=== PATIENT | female | born 2000 | race Caucasian/White ===

== ENCOUNTER 2024-08-29 15:15 | Outpatient (AMB) | payer MEDICAID, SELFPAY ==
[2024-08-29 15:27] VITALS: BP 99/64; PULSE 66; RESP 18; TEMP 36.2; O2SAT 97; BMI 23.1
--- NOTE | 2024-08-29 15:27 | OBCLNT_ITS ---
Vital Signs 08/29/24 15:27 Height 1.52 m Height Method Stated Weight 53.751 kg Weight Measurement Method Standing Scale BMI 23.1 BP 99/64 Blood Pressure Source Automatic Cuff Blood Pressure Location Left Upper Arm Position Sitting Respiration 18 Pulse 66 Pulse Source Monitor Temp 97.2 F Temp Source Oral Pulse Oximetry (%) 97 Oxygen Delivery Method Room Air Allergies/Home Meds Allergies & Medications Allergies No Known Allergies Allergy (Verified 08/29/24 15:29) Medication Reconciliation vitamin-ferrous fumarate 28 mg iron-folic acid 800 mcg tablet ( Vitamins with Minerals) 1 tab PO QDAY #60 tabs 08/29/24 [Rx] Intake Visit Data Collection New Patient or Established: Established Patient (seen at [facility] within 3 years) Reason for Visit:: OBI Seen by Clinical Staff ONLY (RN/MA): No Housing Liaison Required: No Do You Feel Safe at Home: Yes Authorities Contacted: N/A PCP or OBGYN visit in last 3 months: Yes Hx Now: Yes Are you currently on any form of Control: No Last menstrual period: 06/03/24 Pain Present Currently: No Pain Scale Used: Garcia-Alexandre/Numerical Pain scale:: 0 Smoking Status Smoking Status: Never smoker Questionnaires Covid-19 Vaccine Questionnaire Has patient been vacinated for Covid-19 Have you been vacinated for Covid-19: Yes PHQ-9 PHQ-2 Over the last 2 weeks, how often have you been bothered by any of the following problems? 1. Little interest or pleasure in doing things: not at all 2. Feeling down, depressed, or hopeless: not at all Total score: 0 PHQ-9 3. Trouble falling or staying asleep, or sleeping too much: Not at all 4. Feeling tired or having little energy: Not at all 5. Poor appetite or overeating: Not at all 6. Feeling bad about yourself - or that you are a failure or have let yourself or your family down: Not at all 7. Trouble concentrating on things, such as reading the newspaper or watching television: Not at all 8. Moving or speaking so slowly that other people could have noticed? - Or the opposite - being so fidgety or restless that you have been moving around a lot more than usual: not at all 9. Thoughts that you would be better off or of hurting yourself in some way: Not at all Total score: 0 If you checked off any problems, how difficult have these problems made it for you to do your work, take care of things at home, or get along with other people?: not difficult at all Source: Developed by Drs. Silas Aranda, Bria Clayton, Luis Jones and colleagues, with an educational logan from [employer]. Depression screen completed yes Social History Living Situation History Marital Status: Single Lives With: Family Housing: House Tobacco History Smoking Status: Never smoker Second Hand Smoke Exposure: No Alcohol History Alcohol Intake: Never Domestic Abuse History Do You Feel Safe at Home: Yes History of Present Illness HPI Narrative 24-year-old 4 para 3 for OBI. Patient [facility]. Her last period June 03, 2024. This gives EDC 03/11/2025. So patient is 12 weeks 2 to date. And she has not had any labs done. Patient had 3 pregnancies and all of them were uncomplicated. Biggest baby 8 pounds 6. Denies any existing chronic medical illnesses. She has no allergies. Denies any surgeries and no hospitalizations other than her children. Denies social pet habits. And patient does not have any first trimester discomforts at this time. Denies leaking or bleeding OB Initial Visit OB Flowsheet OB Flowsheet Initial Weight: Not Recorded Date -?-?-?-?-?-?-?-?-?-?-?-?- EGA Weight BP Alb Glu CTX Pres Fundal ht FHR Mov Dilation Station Effacement Hx Notes Visit Note 08/29/24 -?-?-?-?-?-?-?-?-?-?-?-?- 12w 3d 53.751 kg 99/64 absent unknown 12 136 absent OBI today. Denies leaking or bleeding. Denies any nausea and vomiting. Patient lives with her mother so she has help at home. Father the baby is not involved. Last. June 03, 2024. This gives due date 03/11/2025. Patient has poor dates OB panel with NIPT and carrier screen today. Is scheduled patient for ultrasound at [facility] for MFM. Discussed SAB precautions. Increase fluids and rest. Continue vitamins. Return in 4 weeks OB check Menstrual History Menstrual reliability: definite Flow: normal Menstrual regularity: regular Monthly: Yes Age at menarche: 12 On control pills at conception: No OB History : 4 Para: 3 Hx # Pregnancies: 0 Hx Total # of Abortions (Spontaneous & Elective): 0 # of Living Children: 3 Delivery History 1st : date: 07/12/17 sex: male Delivery type: vaginal weight (lbs): 3175.147 g History of depression before or after : No 2nd : date: 12/28/19 sex: female Delivery type: vaginal weight (lbs): 3175.147 g History of depression before or after : No 3rd : date: 12/01/22 sex: female Delivery type: vaginal weight (lbs): 3628.739 g History of depression before or after : No Infection History & Risk Evaluation History of STDs: none HIV risk evaluation: low risk Hepatitis B risk evaluation: low risk Patient or partner has history of Genital Herpes: No Varicella/chicken pox status: immunized Genetic Screening & History Genetic Screening/Teratology Counseling - Includes patient, baby's father, or anyone in either family with: 1. Patient's age 35 years or older as of estimated date of delivery: No 2. Thalassemia (Divehi, Finnish, Mediterranean, or Background); MCV less than 80: No 3. Neural Tube Defect (Meningomyelocele, Spina Bifida, or Anencephaly): No 4. Congenital Heart Defect: No 5. Down Syndrome: No 6. Brice-Sachs (Ashkenazi Synagogue, Cajun, Greek Mckean): No 7. Wali Disease (Ashkenazi Synagogue): No 8. Familial Dysautonomia (Ashkenazi Synagogue): No 9. Sickle Cell Disease or Trait (): No 10. Hemophilia or other blood disorders: No 11. Muscular Dystrophy: No 12. Cystic Fibrosis: No 13. [place]'s Chorea: No 14. Mental Retardation/Autism: No 15. Other inherited genetic or chromosomal disorder: No 16. Maternal Metabolic Disorder (EG,TYPE 1 Diabetes, PKU): No 17. Patient or baby's father had a child with defects not listed above: No 18. Recurrent loss or a stillbirth: No 19. Medications (including supplements, vitamins, herbs or otc drugs)/illicit/recreational drugs/alcohol since last menstrual period: No 20. Any other: No Infection History 1. Live with someone with TB or exposed to TB: No 2. Rash or viral illness since last menstrual period: No 3. Hepatitis B,C: No Other (see comments) Source: [employer] Review of Systems Review of Systems Systems Reviewed: All systems reviewed, normal except as documented Exam General Limitations: no limitations General Appearance: alert, in no apparent distress, comfortable, cooperative, healthy appearing, well developed and well groomed Head Head exam: atraumatic, normocephalic and normal inspection Resp Respiratory exam: Present normal lung sounds bilaterally Card Cardiovascular exam: Present regular rate, normal rhythm and normal heart sounds Abdominal Abdominal exam: Present soft and normal bowel sounds Psych Psychiatric exam: Present normal affect and normal mood Office Procedures OB Clinic LOC & Office Proc's Nursing/Assessment Patient Status: Established Patient OB Clinic Nursing Assessment: Medication Reconciliation, Update PMH in EMR and Vital Signs OB Clinic Coordination of Care: Education Complex Pt/Fam, Consent,records obtained, informed consent, Lab and Imaging orders and Staff clarify orders Special Needs: Heart tones Established Patient Charge Established Patient Point Assignment: 110 Established Patient Point Charge: EP Level 3 (80-115) Assessment & Plan Diagnosis / Problem List (1) Supervision of normal intrauterine in multigravida in second trimester: Status: Acute (2) High risk for intrapartum complications in second trimester: Status: Acute Plan discuss sab precaution, schedule anatomy scan with MFM, OB panel, NIPT and carrier screen, continue PNV/ordered, rtc 3 week Additional Plan Follow Up: 4 Weeks (obc)
== END 2024-08-29 15:58 | disposition home or self-care (01) ==
LOC: HODSOBC 15:15
PROVIDERS: PCP Pediatrics; Referring Provider Pediatrics; Supervising Provider Advanced Practice Midwife; Visit Provider Advanced Practice Midwife
DX: O09.91 Supervision of high risk pregnancy, unspecified, first trimester (principal); Z3A.12 12 weeks gestation of pregnancy
CPT/HCPCS: 99213; G0463

== ENCOUNTER 2024-10-03 10:16 | Outpatient (AMB) | payer MEDICAID, SELFPAY ==
[2024-10-03 10:27] VITALS: BP 95/58; PULSE 69; RESP 17; TEMP 36.5; O2SAT 98; BMI 23.3
--- NOTE | 2024-10-03 10:27 | OBCLNT_ITS ---
Vital Signs 10/03/24 10:27 Height 1.52 m Height Method Measured Weight 54.034 kg Weight Measurement Method Standing Scale BMI 23.3 BP 95/58 L Blood Pressure Source Automatic Cuff Blood Pressure Location Right Upper Arm Position Sitting Respiration 17 Pulse 69 Pulse Source Monitor Temp 97.7 F Temp Source Temporal Artery Scan Pulse Oximetry (%) 98 Oxygen Delivery Method Room Air Allergies/Home Meds Allergies & Medications Allergies No Known Allergies Allergy (Verified 10/03/24 10:28) Medication Reconciliation vitamin-ferrous fumarate 28 mg iron-folic acid 800 mcg tablet ( Vitamins with Minerals) 1 tab PO QDAY #60 tabs 08/29/24 [Rx Confirmed 10/03/24] Intake Visit Data Collection New Patient or Established: Established Patient (seen at [facility] within 3 years) Reason for Visit:: OBC Consent obtained for Telemed Visit: No Seen by Clinical Staff ONLY (RN/MA): No Executive Chef Required: No Do You Feel Safe at Home: Yes Authorities Contacted: N/A PCP or OBGYN visit in last 3 months: Yes Date of Last PCP or OBGYN visit: 08/29/24 Hx Now: Yes Are you currently on any form of Control: No Pain Present Currently: No Pain Scale Used: Garica-Alexandre/Numerical Pain scale:: 0 Smoking Status Smoking Status: Never smoker Questionnaires Covid-19 Vaccine Questionnaire Has patient been vacinated for Covid-19 Have you been vacinated for Covid-19: No PHQ-9 PHQ-2 Over the last 2 weeks, how often have you been bothered by any of the following problems? 1. Little interest or pleasure in doing things: not at all PHQ-9 8. Moving or speaking so slowly that other people could have noticed? - Or the opposite - being so fidgety or restless that you have been moving around a lot more than usual: not at all Source: Developed by Drs. Silas Aranda, Bria Clayton, Luis Jones and colleagues, with an educational logan from [employer]. Social History Living Situation History Lives With: Family Housing: House Tobacco History Smoking Status: Never smoker Second Hand Smoke Exposure: No Alcohol History Alcohol Intake: Never Domestic Abuse History Do You Feel Safe at Home: Yes Care OB Visit Log OB Flowsheet Initial Weight: Not Recorded Date -?-?-?-?-?-?-?-?-?-?-?-?- EGA Weight BP Alb Glu CTX Pres Fundal ht FHR Mov Dilation Station Effacement Hx Notes Visit Note 08/29/24 -?-?-?-?-?-?-?-?-?-?-?-?- 12w 3d 53.751 kg 99/64 absent unknown 12 136 absent OBI today. Denies leaking or bleeding. Denies any nausea and vomiting. Patient lives with her mother so she has help at home. Father the baby is not involved. Last. June 03, 2024. This gives due date 03/11/2025. Patient has poor dates OB panel with NIPT and carrier screen today. Is scheduled patient for ultrasound at [facility] for MFM. Discussed SAB precautions. Increase fluids and rest. Continue vitamins. Return in 4 weeks OB check 10/03/24 -?-?-?-?-?-?-?-?-?-?-?-?- 17w 3d 54.034 kg 95/58 absent unknown 17 135 absent c/o light FM, no sab complaints, doing well AFP today , patient will call [facility] for sono. sab precaution DINORAH Calculator Estimated Delivery Date Method Current WG Current Estimate 03/10/25 LMP (Uncertain) 17w 3d Notes Visit Date: 10/03/24 Last Updated by: Shital North CNM O+,abs-, rpr;;nr, rub imm, hbsag-, hiv-, GC/CT-, NIPT-, HC-, Visit Date: 08/29/24 Last Updated by: Shital North CNM 24 yo . LMP 06/03/24. EDC 03/11/25 Office Procedures OB Clinic LOC & Office Proc's Nursing/Assessment Patient Status: Established Patient OB Clinic Nursing Assessment: Medication Reconciliation, Update PMH in EMR and Vital Signs OB Clinic Coordination of Care: Complex Care and Chronic Disease 1-5, Consent,records obtained, informed consent, Education Simp Pt/Fam and Staff clarify orders Special Needs: Heart tones Established Patient Charge Established Patient Point Assignment: 115 Established Patient Point Charge: EP Level 3 (80-115) Assessment & Plan Diagnosis / Problem List (1) High risk for intrapartum complications in second trimester: Status: Acute Plan AFP today, mfm appointment pending, discuss sab precaution, rtc 4 week OBC Additional Plan Follow Up: 4 Weeks (OBC)
== END 2024-10-03 11:12 | disposition home or self-care (01) ==
LOC: HODSOBC 10:16
PROVIDERS: Supervising Provider Advanced Practice Midwife; Visit Provider Advanced Practice Midwife
DX: O09.92 Supervision of high risk pregnancy, unspecified, second trimester (principal); Z3A.17 17 weeks gestation of pregnancy
CPT/HCPCS: 99213; G0463

== ENCOUNTER 2024-10-31 10:37 | Outpatient (AMB) | payer MEDICAID, SELFPAY ==
--- NOTE | 2024-10-31 11:00 | AMB.OBVISIT ---
Vital Signs 10/31/24 11:03 Height 1.52 m Height Method Stated Weight 54.658 kg Weight Measurement Method Standing Scale BMI 23.6 BP 96/59 L Blood Pressure Source Automatic Cuff Blood Pressure Location Left Upper Arm Position Sitting Respiration 16 Pulse 78 Pulse Source Monitor Temp 98 F Temp Source Oral Pulse Oximetry (%) 98 Oxygen Delivery Method Room Air Allergies/Home Meds Allergies & Medications Allergies No Known Allergies Allergy (Verified 10/31/24 11:04) Medication Reconciliation vitamin-ferrous fumarate 28 mg iron-folic acid 800 mcg tablet ( Vitamins with Minerals) 1 tab PO QDAY #60 tabs 08/29/24 [Rx Confirmed 10/31/24] Intake Visit Data Collection New Patient or Established: Established Patient (seen at 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 1. Little interest or pleasure in doing things: not at all 2. Feeling down, depressed, or hopeless: not at all Total score: 0 PHQ-9 3. Trouble falling or staying asleep, or sleeping too much: Not at all 4. Feeling tired or having little energy: Not at all 5. Poor appetite or overeating: Not at all 6. Feeling bad about yourself - or that you are a failure or have let yourself or your family down: Not at all 7. Trouble concentrating on things, such as reading the newspaper or watching television: Not at all 8. Moving or speaking so slowly that other people could have noticed? - Or the opposite - being so fidgety or restless that you have been moving around a lot more than usual: not at all 9. Thoughts that you would be better off or of hurting yourself in some way: Not at all Total score: 0 Source: Developed by Drs. Silas Aranda, Bria Clayton, Luis Jones and colleagues, with an educational logan from [employer]. Depression screen completed yes Social History Living Situation History Lives With: Family Housing: House Tobacco History Smoking Status: Never smoker Second Hand Smoke Exposure: No Alcohol History Alcohol Intake: Never Domestic Abuse History Do You Feel Safe at Home: Yes Care OB Visit Log OB Flowsheet Initial Weight: Not Recorded Date <del>?</del> EGA Weight BP Alb Glu CTX Pres Fundal ht FHR Mov Dilation Station Effacement Hx Notes Visit Note 08/29/24 <del>?</del> 12w 3d 53.751 kg 99/64 absent unknown 12 136 absent OBI today. Denies leaking or bleeding. Denies any nausea and vomiting. Patient lives with her mother so she has help at home. Father the baby is not involved. Last. June 03, 2024. This gives due date 03/11/2025. Patient has poor dates OB panel with NIPT and carrier screen today. Is scheduled patient for ultrasound at [facility] for MFM. Discussed SAB precautions. Increase fluids and rest. Continue vitamins. Return in 4 weeks OB check 10/03/24 <del>?</del> 17w 3d 54.034 kg 95/58 absent unknown 17 135 absent c/o light FM, no sab complaints, doing well AFP today, patient will call [facility] for sono. sab precaution 10/31/24 <del>?</del> 21w 3d 54.658 kg 96/59 absent unknown 20 145 absent + fm, denies ptl complaints, denies LOF,VB,UC f/u on anatomy scan, discuss ptl precaution, hydrate, comfort measure for URI, discuss danger s/s. 3rd tri labnv, rtc 4 week DINORAH Calculator Estimated Delivery Date Method Current WG Current Estimate 03/10/25 LMP (Uncertain) 21w 3d Notes Visit Date: 10/31/24 Last Updated by: Shital North CNM 24 yo lmp 06/03/24. EDC: 03/10/25. NIPT/carrier screen-, OB panel: O+,abs-, rpr;;nr, rub imm, hbsag-,hiv-, HC-, GC/CT-, UT-/UA-, Visit Date: 10/03/24 Last Updated by: Shital North CNM O+,abs-, rpr;;nr, rub imm, hbsag-, hiv-, GC/CT-, NIPT-, HC-, Visit Date: 08/29/24 Last Updated by: Shital North CNM 24 yo . LMP 06/03/24. EDC 03/11/25 Office Procedures OB Clinic LOC & Office Proc's Nursing/Assessment Patient Status: Established Patient OB Clinic Nursing Assessment: Medication Reconciliation, Update PMH in EMR and Vital Signs OB Clinic Coordination of Care: Complex Care and Chronic Disease 1-5, Consent,records obtained, informed consent, Education Simp Pt/Fam, 1 Ins Authorization, Lab and Imaging orders, Results/Orders obtained and Staff clarify orders Special Needs: Heart tones Established Patient Charge Established Patient Point Assignment: 150 Established Patient Point Charge: EP Level 4 (120-155) Assessment & Plan Diagnosis / Problem List (1) High risk for intrapartum complications in second trimester: Status: Acute Plan discuss NIPT, ptl precaution and danger s/s, f/u on anatomy scan, patient given phone number. hydrate. rtc 4 week. 3rd tri lab nv Additional Plan Follow Up: 4 Weeks (obc)
[2024-10-31 11:03] VITALS: BP 96/59; PULSE 78; RESP 16; TEMP 36.6; O2SAT 98; BMI 23.6
== END 2024-10-31 11:31 | disposition home or self-care (01) ==
LOC: HODSOBC 10:37
PROVIDERS: PCP Advanced Practice Midwife; Referring Provider Advanced Practice Midwife; Supervising Provider Advanced Practice Midwife; Visit Provider Advanced Practice Midwife
DX: O09.92 Supervision of high risk pregnancy, unspecified, second trimester (principal); Z3A.21 21 weeks gestation of pregnancy
CPT/HCPCS: 99214; G0463

== ENCOUNTER 2024-11-29 10:04 | Outpatient (AMB) | payer MEDICAID, SELFPAY ==
[2024-11-29 10:25] VITALS: BP 99/62; PULSE 82; RESP 16; TEMP 36.6; O2SAT 97; BMI 24.3
--- NOTE | 2024-11-29 10:25 | OBCLNT_ITS ---
Vital Signs 11/29/24 10:25 Height 1.52 m Height Method Stated Weight 56.245 kg Weight Measurement Method Standing Scale BMI 24.3 BP 99/62 Blood Pressure Source Automatic Cuff Blood Pressure Location Left Upper Arm Position Sitting Respiration 16 Pulse 82 Pulse Source Monitor Temp 98 F Temp Source Oral Pulse Oximetry (%) 97 Oxygen Delivery Method Room Air Allergies/Home Meds Allergies & Medications Allergies No Known Allergies Allergy (Verified 11/29/24 10:26) Medication Reconciliation vitamin-ferrous fumarate 28 mg iron-folic acid 800 mcg tablet ( Vitamins with Minerals) 1 tab PO QDAY #60 tabs 08/29/24 [Rx Confirmed 11/29/24] Intake Visit Data Collection New Patient or Established: Established Patient (seen at [facility] within 3 years) Reason for Visit:: CARE Seen by Clinical Staff ONLY (RN/MA): No Shank Taper Required: No Do You Feel Safe at Home: Yes Authorities Contacted: N/A PCP or OBGYN visit in last 3 months: Yes Hx Now: Yes Are you currently on any form of Control: No Pain Present Currently: No Pain Scale Used: Garcia-Alexandre/Numerical Pain scale:: 0 Smoking Status Smoking Status: Never smoker Questionnaires Covid-19 Vaccine Questionnaire Has patient been vacinated for Covid-19 Have you been vacinated for Covid-19: Yes PHQ-9 PHQ-2 Over the last 2 weeks, how often have you been bothered by any of the following problems? 1. Little interest or pleasure in doing things: not at all 2. Feeling down, depressed, or hopeless: not at all Total score: 0 PHQ-9 3. Trouble falling or staying asleep, or sleeping too much: Not at all 4. Feeling tired or having little energy: Not at all 5. Poor appetite or overeating: Not at all 6. Feeling bad about yourself - or that you are a failure or have let yourself or your family down: Not at all 7. Trouble concentrating on things, such as reading the newspaper or watching television: Not at all 8. Moving or speaking so slowly that other people could have noticed? - Or the opposite - being so fidgety or restless that you have been moving around a lot more than usual: not at all 9. Thoughts that you would be better off or of hurting yourself in some way: Not at all Total score: 0 Source: Developed by Drs. Silas Aranda, Bria Clayton, Luis Jones and colleagues, with an educational logan from [employer]. Depression screen completed yes Social History Living Situation History Lives With: Family Housing: House Tobacco History Smoking Status: Never smoker Second Hand Smoke Exposure: No Alcohol History Alcohol Intake: Never Domestic Abuse History Do You Feel Safe at Home: Yes Care OB Visit Log OB Flowsheet Initial Weight: Not Recorded Date -?-?-?-?-?-?-?-?-?-?-?-?- EGA Weight BP Alb Glu CTX Pres Fundal ht FHR Mov Dilation Station Effacement Hx Notes Visit Note 08/29/24 -?-?-?-?-?-?-?-?-?-?-?-?- 12w 3d 53.751 kg 99/64 absent unknown 12 136 absent OBI today. Denies leaking or bleeding. Denies any nausea and vomiting. Patient lives with her mother so she has help at home. Father the baby is not involved. Last. June 03, 2024. This gives due date 03/11/2025. Patient has poor dates OB panel with NIPT and carrier screen today. Is scheduled patient for ultrasound at [facility] for MFM. Discussed SAB precautions. Increase fluids and rest. Continue vitamins. Return in 4 weeks OB check 10/03/24 -?-?-?-?-?-?-?-?-?-?-?-?- 17w 3d 54.034 kg 95/58 absent unknown 17 135 absent c/o light FM, no sab complaints, doing well AFP today , patient will call [facility] for sono. sab precaution 10/31/24 -?-?-?-?-?-?-?-?-?-?-?-?- 21w 3d 54.658 kg 96/59 absent unknown 20 145 absent + fm, denies ptl complaints, denies LOF,VB,UC f/u on anatomy scan, discuss ptl precaution, hydrate, comfort measure for URI, discuss danger s/s. 3rd tri labnv, rtc 4 week 11/29/24 -?-?-?-?-?-?-?-?-?-?-?-?- 25w 4d 56.245 kg 99/62 absent unknown 24 145 absent Reports good movement. Denies labor complaints. Denies leaking, bleeding, contractions Patient has a fo llow-up ultrasound for growth in 4 to 6 weeks. Continue labor precautions. Third trimester labs ordered. Encourage activity and fluids. Return in 4 weeks OB DINORAH Calculator Estimated Delivery Date Method Current WG Current Estimate 03/10/25 LMP (Uncertain) 25w 4d Other Estimates 03/10/25 Ultrasound #1 25w 4d Notes Visit Date: 11/29/24 Last Updated by: Shital North CNM 11/23: IUP: 24w5. EDC: 03/10/15. efw 30% Visit Date: 10/31/24 Last Updated by: Shital North CNM 24 yo lmp 06/03/24. EDC: 03/10/25. NIPT/carrier screen-, OB panel: O+,abs-, rpr;;nr, rub imm, hbsag-,hiv-, HC-, GC/CT-, UT-/UA-, Visit Date: 10/03/24 Last Updated by: Shital North CNM O+,abs-, rpr;;nr, rub imm, hbsag-, hiv-, GC/CT-, NIPT-, HC-, Visit Date: 08/29/24 Last Updated by: Shital North CNM 24 yo . LMP 06/03/24. EDC 03/11/25 Office Procedures OB Clinic LOC & Office Proc's Nursing/Assessment Patient Status: Established Patient OB Clinic Nursing Assessment: Medication Reconciliation, Update PMH in EMR and Vital Signs OB Clinic Coordination of Care: Complex Care and Chronic Disease 1-5, Consent,records obtained, informed consent, Education Simp Pt/Fam, 1 Ins Authorization, Lab and Imaging orders, Results/Orders obtained and Staff clarify orders Special Needs: Heart tones Established Patient Charge Established Patient Point Assignment: 150 Established Patient Point Charge: EP Level 4 (120-155) Assessment & Plan Diagnosis / Problem List (1) High risk for intrapartum complications in second trimester: Status: Acute Plan Third trimester labs ordered. Continue prenatals. Increase fluids. Discussed diet and weight gain. Increase activity. Discussed labor precautions. Return in 4 weeks at which Additional Plan Follow Up: 4 Weeks (obc)
== END 2024-11-29 10:44 | disposition home or self-care (01) ==
LOC: HODSOBC 10:04
PROVIDERS: Supervising Provider Advanced Practice Midwife; Visit Provider Advanced Practice Midwife
DX: O09.92 Supervision of high risk pregnancy, unspecified, second trimester (principal); Z3A.25 25 weeks gestation of pregnancy
CPT/HCPCS: 99214; G0463

== ENCOUNTER 2024-12-27 09:32 | Outpatient (AMB) | payer MEDICAID, SELFPAY ==
[2024-12-27 09:37] VITALS: BP 96/59; PULSE 94; RESP 16; TEMP 36.2; O2SAT 98; BMI 25.0
--- NOTE | 2024-12-27 09:37 | OBCLNT_ITS ---
Vital Signs 12/27/24 09:37 Height 1.52 m Height Method Stated Weight 57.663 kg Weight Measurement Method Standing Scale BMI 25.0 BP 96/59 L Blood Pressure Source Automatic Cuff Blood Pressure Location Left Upper Arm Position Sitting Respiration 16 Pulse 94 Pulse Source Monitor Temp 97.2 F Temp Source Oral Pulse Oximetry (%) 98 Oxygen Delivery Method Room Air Allergies/Home Meds Allergies & Medications Allergies No Known Allergies Allergy (Verified 12/27/24 09:37) Medication Reconciliation vitamin-ferrous fumarate 28 mg iron-folic acid 800 mcg tablet ( Vitamins with Minerals) 1 tab PO QDAY #60 tabs 12/27/24 [Rx] Intake Visit Data Collection New Patient or Established: Established Patient (seen at [facility] within 3 years) Reason for Visit:: OBC Seen by Clinical Staff ONLY (RN/MA): No Logging Shovel Operator Required: No Do You Feel Safe at Home: Yes Authorities Contacted: N/A PCP or OBGYN visit in last 3 months: Yes Date of Last PCP or OBGYN visit: 11/29/24 Hx Now: Yes Are you currently on any form of Control: No Pain Present Currently: No Pain Scale Used: Garcia-Alexandre/Numerical Pain scale:: 0 Smoking Status Smoking Status: Never smoker Questionnaires Covid-19 Vaccine Questionnaire Has patient been vacinated for Covid-19 Have you been vacinated for Covid-19: Yes PHQ-9 PHQ-2 Over the last 2 weeks, how often have you been bothered by any of the following problems? 1. Little interest or pleasure in doing things: not at all 2. Feeling down, depressed, or hopeless: not at all Total score: 0 PHQ-9 3. Trouble falling or staying asleep, or sleeping too much: Not at all 4. Feeling tired or having little energy: Not at all 5. Poor appetite or overeating: Not at all 6. Feeling bad about yourself - or that you are a failure or have let yourself or your family down: Not at all 7. Trouble concentrating on things, such as reading the newspaper or watching television: Not at all 8. Moving or speaking so slowly that other people could have noticed? - Or the opposite - being so fidgety or restless that you have been moving around a lot more than usual: not at all 9. Thoughts that you would be better off or of hurting yourself in some way: Not at all Total score: 0 If you checked off any problems, how difficult have these problems made it for you to do your work, take care of things at home, or get along with other people?: not difficult at all Source: Developed by Drs. Silas Aranda, Bria Clayton, Luis Jones and colleagues, with an educational logan from [employer]. Depression screen completed yes Social History Living Situation History Marital Status: Single Lives With: Family Housing: House Tobacco History Smoking Status: Never smoker Second Hand Smoke Exposure: No Alcohol History Alcohol Intake: Never Domestic Abuse History Do You Feel Safe at Home: Yes Care OB Visit Log OB Flowsheet Initial Weight: Not Recorded Date -?-?-?-?-?-?-?-?-?-?-?-?- EGA Weight BP Alb Glu CTX Pres Fundal ht FHR Mov Dilation Station Effacement Hx Notes Visit Note 08/29/24 -?-?-?-?-?-?-?-?-?-?-?-?- 12w 3d 53.751 kg 99/64 absent unknown 12 136 absent OBI today. Denies leaking or bleeding. Denies any nausea and vomiting. Patient lives with her mother so she has help at home. Father the baby is not involved. Last. June 03, 2024. This gives due date 03/11/2025. Patient has poor dates OB panel with NIPT and carrier screen today. Is scheduled patient for ultrasound at [facility] for MFM. Discussed SAB precautions. Increase fluids and rest. Continue vitamins. Return in 4 weeks OB check 10/03/24 -?-?-?-?-?-?-?-?-?-?-?-?- 17w 3d 54.034 kg 95/58 absent unknown 17 135 absent c/o light FM, no sab complaints, doing well AFP today , patient will call [facility] for sono. sab precaution 10/31/24 -?-?-?-?-?-?-?-?-?-?-?-?- 21w 3d 54.658 kg 96/59 absent unknown 20 145 absent + fm, denies ptl complaints, denies LOF,VB,UC f/u on anatomy scan, discuss ptl precaution, hydrate, comfort measure for URI, discuss danger s/s. 3rd tri labnv, rtc 4 week 11/29/24 -?-?-?-?-?-?-?-?-?-?-?-?- 25w 4d 56.245 kg 99/62 absent unknown 24 145 absent Reports good movement. Denies labor complaints. Denies leaking, bleeding, contractions Patient has a fo llow-up ultrasound for growth in 4 to 6 weeks. Continue labor precautions. Third trimester labs ordered. Encourage activity and fluids. Return in 4 weeks OB 12/27/24 -?-?-?-?-?-?-?-?-?-?-?-?- 29w 4d 57.663 kg 96/59 absent unknown 28 145 absent Reports good movement. Denies contractions. Denies leaking. Denies bleeding. Patient needs a refill on vitamins Ultrasound at [facility] for growth. Refill vitamins. Discussed diet and weight. Patient eats every 2 hours. Discussed labor precautions. Tdap today. Increase fluids. Return in 3 weeks OB check DINORAH Calculator Estimated Delivery Date Method Current WG Current Estimate 03/10/25 LMP (Uncertain) 29w 4d Other Estimates 03/10/25 Ultrasound #1 29w 4d Notes Visit Date: 12/27/24 Last Updated by: Shital North CNM 12/27: 3rd tri labs: wnl Visit Date: 11/29/24 Last Updated by: Shital North CNM 11/23: IUP: 24w5. EDC: 03/10/15. efw 30% Visit Date: 10/31/24 Last Updated by: Shital North CNM 24 yo lmp 06/03/24. EDC: 03/10/25. NIPT/carrier screen-, OB panel: O+,abs-, rpr;;nr, rub imm, hbsag-,hiv-, HC-, GC/CT-, UT-/UA-, Visit Date: 10/03/24 Last Updated by: Shital North CNM O+,abs-, rpr;;nr, rub imm, hbsag-, hiv-, GC/CT-, NIPT-, HC-, Visit Date: 08/29/24 Last Updated by: Shital North CNM 24 yo . LMP 06/03/24. EDC 03/11/25 Office Procedures OBC Clinic LOC & Office Proc's Nursing/Assessment Patient Status: Established Patient OB Clinic Nursing Assessment: Medication Reconciliation, Update PMH in EMR and Vital Signs OB Clinic Coordination of Care: Education Complex Pt/Fam, Consent,records obtained, informed consent, Lab and Imaging orders, Results/Orders obtained and Staff clarify orders Special Needs: Heart tones Established Patient Charge Established Patient Point Assignment: 115 Established Patient Point Charge: EP Level 3 (80-115) Immunizations diphth,pertus(acell),tetanus 2.5 Lf unit-8 mcg-5 Lf/0.5mL IM syringe Performing Provider: Shital North CNM Performing Location: [facility] Administered by: Shaina Larson MA on 12/27/24 16:11 Dose Route Admin Location Dispensed Lot Number Expiration Date Pack age [facility] [place] Ventilating Expert 0.5 mL IM Left Deltoid 0.5 mL [id number] 02/16/27 71954-441-92 [id number] [employer] VIS Given Date VIS Provided VIS Publication Date 12/27/24 Single Vaccine 24 Eligibility Eligibility Date Funding Source Public Non-[facility] Assessment & Plan Diagnosis / Problem List (1) High risk for intrapartum complications in second trimester: Status: Acute Plan Ultrasound at [facility] for growth. Discussed labor precautions. Increase fluids. Refill prenatals. Tdap today. We talked about increasing calories. Patient is going to eat every 2 hours. Return in 3 weeks OB check Additional Plan Follow Up: 3 Weeks (obc)
== END 2024-12-27 09:46 | disposition home or self-care (01) ==
LOC: HODSOBC 09:32
PROVIDERS: Supervising Provider Advanced Practice Midwife; Visit Provider Advanced Practice Midwife
DX: O09.93 Supervision of high risk pregnancy, unspecified, third trimester (principal); Z3A.29 29 weeks gestation of pregnancy; Z23 Encounter for immunization
CPT/HCPCS: 90471; 90715; 99213; G0463

== ENCOUNTER 2025-01-11 10:24 | Outpatient (AMB) | payer MEDICAID, SELFPAY ==
[2025-01-11 10:31] VITALS: BP 100/59; PULSE 93; RESP 17; TEMP 36.6; O2SAT 97; BMI 25.5
--- NOTE | 2025-01-11 10:31 | AMB.OBVISIT ---
Vital Signs 01/11/25 10:31 Height 1.52 m Height Method Stated Weight 59.024 kg Weight Measurement Method Standing Scale BMI 25.5 BP 100/59 L Blood Pressure Source Automatic Cuff Blood Pressure Location Right Upper Arm Position Sitting Respiration 17 Pulse 93 Pulse Source Monitor Temp 97.8 F Temp Source Temporal Artery Scan Pulse Oximetry (%) 97 Oxygen Delivery Method Room Air Allergies/Home Meds Allergies & Medications Allergies No Known Allergies Allergy (Verified 01/11/25 10:34) Medication Reconciliation vitamin-ferrous fumarate 28 mg iron-folic acid 800 mcg tablet ( Vitamins with Minerals) 1 tab PO QDAY #60 tabs 12/27/24 [Rx Confirmed 01/11/25] Intake Visit Data Collection New Patient or Established: Established Patient (seen at [facility] within 3 years) Reason for Visit:: OBC Seen by Clinical Staff ONLY (RN/MA): No Natural Resources Extension Educator Required: No Do You Feel Safe at Home: Yes Authorities Contacted: N/A PCP or OBGYN visit in last 3 months: Yes Date of Last PCP or OBGYN visit: 12/27/24 Hx Now: Yes Are you currently on any form of Control: No Pain Present Currently: No Pain Scale Used: Garcia-Alexandre/Numerical Pain scale:: 0 Smoking Status Smoking Status: Never smoker Questionnaires Covid-19 Vaccine Questionnaire Has patient been vacinated for Covid-19 Have you been vacinated for Covid-19: No PHQ-9 PHQ-2 Over the last 2 weeks, how often have you been bothered by any of the following problems? 1. Little interest or pleasure in doing things: not at all 2. Feeling down, depressed, or hopeless: not at all Total score: 0 PHQ-9 3. Trouble falling or staying asleep, or sleeping too much: Not at all 4. Feeling tired or having little energy: Not at all 5. Poor appetite or overeating: Not at all 6. Feeling bad about yourself - or that you are a failure or have let yourself or your family down: Not at all 7. Trouble concentrating on things, such as reading the newspaper or watching television: Not at all 8. Moving or speaking so slowly that other people could have noticed? - Or the opposite - being so fidgety or restless that you have been moving around a lot more than usual: not at all 9. Thoughts that you would be better off or of hurting yourself in some way: Not at all Total score: 0 If you checked off any problems, how difficult have these problems made it for you to do your work, take care of things at home, or get along with other people?: not difficult at all Source: Developed by Drs. Silas Aranda, Bria Clayton, Luis Jones and colleagues, with an educational logan from [email or web address]. Depression screen completed yes Social History Living Situation History Marital Status: Lives With: Family Housing: House Tobacco History Smoking Status: Never smoker Second Hand Smoke Exposure: No Alcohol History Alcohol Intake: Never Domestic Abuse History Do You Feel Safe at Home: Yes Care OB Visit Log OB Flowsheet Initial Weight: Not Recorded Date <del>?</del> EGA Weight BP Alb Glu CTX Pres Fundal ht FHR Mov Dilation Station Effacement Hx Notes Visit Note 08/29/24 <del>?</del> 12w 3d 53.751 kg 99/64 absent unknown 12 136 absent OBI today. Denies leaking or bleeding. Denies any nausea and vomiting. Patient lives with her mother so she has help at home. Father the baby is not involved. Last. June 03, 2024. This gives due date 03/11/2025. Patient has poor dates OB panel with NIPT and carrier screen today. Is scheduled patient for ultrasound at [facility] for MFM. Discussed SAB precautions. Increase fluids and rest. Continue vitamins. Return in 4 weeks OB check 10/03/24 <del>?</del> 17w 3d 54.034 kg 95/58 absent unknown 17 135 absent c/o light FM, no sab complaints, doing well AFP today, patient will call [facility] for sono. sab precaution 10/31/24 <del>?</del> 21w 3d 54.658 kg 96/59 absent unknown 20 145 absent + fm, denies ptl complaints, denies LOF,VB,UC f/u on anatomy scan, discuss ptl precaution, hydrate, comfort measure for URI, discuss danger s/s. 3rd tri labnv, rtc 4 week 11/29/24 <del>?</del> 25w 4d 56.245 kg 99/62 absent unknown 24 145 absent Reports good movement. Denies labor complaints. Denies leaking, bleeding, contractions Patient has a follow-up ultrasound for growth in 4 to 6 weeks. Continue labor precautions. Third trimester labs ordered. Encourage activity and fluids. Return in 4 weeks OB 12/27/24 <del>?</del> 29w 4d 57.663 kg 96/59 absent unknown 28 145 absent Reports good movement. Denies contractions. Denies leaking. Denies bleeding. Patient needs a refill on vitamins Ultrasound at [facility] for growth. Refill vitamins. Discussed diet and weight. Patient eats every 2 hours. Discussed labor precautions. Tdap today. Increase fluids. Return in 3 weeks OB check 01/11/25 <del>?</del> 31w 5d 59.024 kg 100/59 absent cephalic 30 146 active Reports good movement. Denies leaking, bleeding, cramps no OB complaints Called for ultrasound results. Discussed labor with patient. Parameters. Discussed kick count twice a day. Increase fluids. Continue with small frequent meals. Return in 2 weeks OB check DINORAH Calculator Estimated Delivery Date Method Current WG Current Estimate 03/10/25 LMP (Uncertain) 31w 5d Other Estimates 03/10/25 Ultrasound #1 31w 5d 03/06/25 Ultrasound #2 32w 2d 03/10/25 Manual 31w 5d final dinorah: 03/10/25. 40% Notes Visit Date: 12/27/24 Last Updated by: Shital North CNM 12/27: 3rd tri labs: wnl Visit Date: 11/29/24 Last Updated by: Shital North CNM 11/23: IUP: 24w5. EDC: 03/10/15. efw 30% Visit Date: 10/31/24 Last Updated by: Shital North CNM 24 yo lmp 06/03/24. EDC: 03/10/25. NIPT/carrier screen-, OB panel: O+,abs-, rpr;;nr, rub imm, hbsag-,hiv-, HC-, GC/CT-, UT-/UA-, Visit Date: 10/03/24 Last Updated by: Shital North CNM O+,abs-, rpr;;nr, rub imm, hbsag-, hiv-, GC/CT-, NIPT-, HC-, Visit Date: 08/29/24 Last Updated by: Shital North CNM 24 yo . LMP 06/03/24. EDC 03/11/25 Office Procedures OBC Clinic LOC & Office Proc's Nursing/Assessment Patient Status: Established Patient OB Clinic Nursing Assessment: Medication Reconciliation, Update PMH in EMR and Vital Signs OB Clinic Coordination of Care: Complex Care and Chronic Disease 1-5, Education Complex Pt/Fam, Consent,records obtained, informed consent and Staff clarify orders Special Needs: Heart tones Established Patient Charge Established Patient Point Assignment: 120 Established Patient Point Charge: EP Level 4 (120-155) Assessment & Plan Diagnosis / Problem List (1) Encounter for supervision of high risk in third trimester, antepartum: Status: Acute Plan Discussed kick count twice a day. Continue small frequent meals. Walk 40 minutes a day. Discussed labor precautions. Call for ultrasound from [facility]. Return in 2 weeks OB check Additional Plan Follow Up: 2 Weeks (obc)
== END 2025-01-11 11:24 | disposition home or self-care (01) ==
LOC: HODSOBC 10:24
PROVIDERS: Supervising Provider Advanced Practice Midwife; Visit Provider Advanced Practice Midwife
DX: O09.93 Supervision of high risk pregnancy, unspecified, third trimester (principal); Z3A.31 31 weeks gestation of pregnancy
CPT/HCPCS: 99214; G0463

== ENCOUNTER 2025-01-25 10:27 | Outpatient (AMB) | payer MEDICAID, SELFPAY ==
[2025-01-25 10:48] VITALS: BP 94/61; PULSE 100; RESP 18; TEMP 36.6; O2SAT 97; BMI 25.7
--- NOTE | 2025-01-25 10:48 | OBCLNT_ITS ---
Vital Signs 01/25/25 10:48 Height 1.52 m Height Method Stated Weight 59.534 kg Weight Measurement Method Standing Scale BMI 25.7 BP 94/61 Blood Pressure Source Automatic Cuff Blood Pressure Location Right Upper Arm Position Sitting Respiration 18 Pulse 100 Pulse Source Monitor Temp 97.8 F Temp Source Temporal Artery Scan Pulse Oximetry (%) 97 Oxygen Delivery Method Room Air Allergies/Home Meds Allergies & Medications Allergies No Known Allergies Allergy (Verified 01/25/25 10:49) Medication Reconciliation vitamin-ferrous fumarate 28 mg iron-folic acid 800 mcg tablet ( Vitamins with Minerals) 1 tab PO QDAY #60 tabs 12/27/24 [Rx Confirmed 01/25/25] Intake Visit Data Collection New Patient or Established: Established Patient (seen at [facility] within 3 years) Reason for Visit:: OBC Seen by Clinical Staff ONLY (RN/MA): No Central Service Supply Distributor Required: No Do You Feel Safe at Home: Yes Authorities Contacted: N/A PCP or OBGYN visit in last 3 months: Yes Date of Last PCP or OBGYN visit: 01/11/25 Hx Now: Yes Are you currently on any form of Control: No Pain Present Currently: No Pain Scale Used: Garcia-Alexandre/Numerical Pain scale:: 0 Smoking Status Smoking Status: Never smoker Immunizations Flu Vaccine in the Last 12 Months: No Flu Vaccine Exclusion Criteria: No Exclusion Criteria Questionnaires Covid-19 Vaccine Questionnaire Has patient been vacinated for Covid-19 Have you been vacinated for Covid-19: No PHQ-9 PHQ-2 Over the last 2 weeks, how often have you been bothered by any of the following problems? 1. Little interest or pleasure in doing things: not at all 2. Feeling down, depressed, or hopeless: not at all Total score: 0 PHQ-9 3. Trouble falling or staying asleep, or sleeping too much: Not at all 4. Feeling tired or having little energy: Not at all 5. Poor appetite or overeating: Not at all 6. Feeling bad about yourself - or that you are a failure or have let yourself or your family down: Not at all 7. Trouble concentrating on things, such as reading the newspaper or watching television: Not at all 8. Moving or speaking so slowly that other people could have noticed? - Or the opposite - being so fidgety or restless that you have been moving around a lot more than usual: not at all 9. Thoughts that you would be better off or of hurting yourself in some way: Not at all Total score: 0 If you checked off any problems, how difficult have these problems made it for you to do your work, take care of things at home, or get along with other people?: not difficult at all Source: Developed by Drs. Silas Aranda, Bria Clayton, Luis Jones and colleagues, with an educational logan from [employer]. Depression screen completed yes Social History Living Situation History Marital Status: Lives With: Family Housing: House Tobacco History Smoking Status: Never smoker Second Hand Smoke Exposure: No Alcohol History Alcohol Intake: Never Domestic Abuse History Do You Feel Safe at Home: Yes Care OB Visit Log OB Flowsheet Initial Weight: Not Recorded Date -?-?-?-?-?-?-?-?-?-?-?-?- EGA Weight BP Alb Glu CTX Pres Fundal ht FHR Mov Dilation Station Effacement Hx Notes Visit Note 08/29/24 -?-?-?-?-?-?-?-?-?-?-?-?- 12w 3d 53.751 kg 99/64 absent unknown 12 136 absent OBI today. Denies leaking or bleeding. Denies any nausea and vomiting. Patient lives with her mother so she has help at home. Father the baby is not involved. Last. June 03, 2024. This gives due date 03/11/2025. Patient has poor dates OB panel with NIPT and carrier screen today. Is scheduled patient for ultrasound at [facility] for MFM. Discussed SAB precautions. Increase fluids and rest. Continue vitamins. Return in 4 weeks OB check 10/03/24 -?-?-?-?-?-?-?-?-?-?-?-?- 17w 3d 54.034 kg 95/58 absent unknown 17 135 absent c/o light FM, no sab complaints, doing well AFP today , patient will call [facility] for sono. sab precaution 10/31/24 -?-?-?-?-?-?-?-?-?-?-?-?- 21w 3d 54.658 kg 96/59 absent unknown 20 145 absent + fm, denies ptl complaints, denies LOF,VB,UC f/u on anatomy scan, discuss ptl precaution, hydrate, comfort measure for URI, discuss danger s/s. [address] [place] [address] labnv, rtc 4 week 11/29/24 -?-?-?-?-?-?-?-?-?-?-?-?- 25w 4d 56.245 kg 99/62 absent unknown 24 145 absent Reports good movement. Denies labor complaints. Denies leaking, bleeding, contractions Patient has a fo llow-up ultrasound for growth in 4 to 6 weeks. Continue labor precautions. Third trimester labs ordered. Encourage activity and fluids. Return in 4 weeks OB 12/27/24 -?-?-?-?-?-?-?-?-?-?-?-?- 29w 4d 57.663 kg 96/59 absent unknown 28 145 absent Reports good movement. Denies contractions. Denies leaking. Denies bleeding. Patient needs a refill on vitamins Ultrasound [facility]. Refill vitamins. Discussed diet and weight. Patient eats every 2 hours. Discussed labor precautions. Tdap today. Increase fluids. Return in 3 weeks OB check 01/11/25 -?-?-?-?-?-?-?-?-?-?-?-?- 31w 5d 59.024 kg 100/59 absent cephalic 30 146 active Reports good movement. Denies leaking, bleeding, cramps no OB complaints Called for ultrasound results. Discussed labor with patient. Parameters. Discussed kick count twice a day. Increase fluids. Continue with small frequent meals. Return in 2 weeks OB check 01/25/25 -?-?-?-?-?-?-?-?-?-?-?-?- 33w 5d 59.534 kg 94/61 absent cephalic 33 145 active Reports good mov ement. Denies leaking or bleeding. No contractions. No OB complaints Fetus active. Discussed kick counts twice a day. Increase fluids. Continue prenatals. Return in 2 weeks OB check DINORAH Calculator Estimated Delivery Date Method Current WG Current Estimate 03/10/25 LMP (Uncertain) 33w 5d Other Estimates 03/10/25 Ultrasound #1 33w 5d 03/06/25 Ultrasound #2 34w 2d 03/10/25 Manual 33w 5d final dinorah: 02/27 05/24. 40% Notes Visit Date: 12/27/24 Last Updated by: Shital North CNM 12/27: 3rd tri labs: wnl Visit Date: 11/29/24 Last Updated by: Shital North CNM 11/23: IUP: 24w5. EDC: 03/10/15. efw 30% Visit Date: 10/31/24 Last Updated by: Shital North CNM 24 yo lmp 06/03/24. EDC: 03/10/25. NIPT/carrier screen-, OB panel: O+,abs-, rpr;;nr, rub imm, hbsag-,hiv-, HC-, GC/CT-, UT-/UA-, Visit Date: 10/03/24 Last Updated by: Shital North CNM O+,abs-, rpr;;nr, rub imm, hbsag-, hiv-, GC/CT-, NIPT-, HC-, Visit Date: 08/29/24 Last Updated by: Shital North CNM 24 yo . LMP 06/03/24. EDC 03/11/25 Office Procedures OBC Clinic LOC & Office Proc's Nursing/Assessment Patient Status: Established Patient OB Clinic Nursing Assessment: Medication Reconciliation, Update PMH in EMR and Vital Signs OB Clinic Coordination of Care: Complex Care and Chronic Disease 1-5, Education Complex Pt/Fam, Consent,records obtained, informed consent, Results/Orders obtained and Staff clarify orders Established Patient Charge Established Patient Point Assignment: 95 Established Patient Point Charge: EP Level 3 (80-115) Assessment & Plan Diagnosis / Problem List (1) Encounter for supervision of high risk in third trimester, antepartum: Status: Acute Plan Discussed labor precautions. Kick count twice a day. Increase fluids. Continue prenatals. Return in 2 weeks OB check. GBS next visit Additional Plan Follow Up: 2 Weeks (OBC.gbs)
== END 2025-01-25 11:21 | disposition home or self-care (01) ==
LOC: HODSOBC 10:27
PROVIDERS: Supervising Provider Advanced Practice Midwife; Visit Provider Advanced Practice Midwife
DX: O09.93 Supervision of high risk pregnancy, unspecified, third trimester (principal); Z3A.33 33 weeks gestation of pregnancy
CPT/HCPCS: 99213; G0463

== ENCOUNTER 2025-02-08 10:09 | Outpatient (AMB) | payer MEDICAID, SELFPAY ==
[2025-02-08 10:23] VITALS: BP 98/62; PULSE 90; RESP 18; TEMP 36.6; O2SAT 96; BMI 26.1
--- NOTE | 2025-02-08 10:23 | OBCLNT_ITS ---
Vital Signs 02/08/25 10:23 Height 1.52 m Height Method Stated Weight 60.328 kg Weight Measurement Method Standing Scale BMI 26.1 BP 98/62 Blood Pressure Source Automatic Cuff Blood Pressure Location Left Upper Arm Position Sitting Respiration 18 Pulse 90 Pulse Source Monitor Temp 97.8 F Temp Source Oral Pulse Oximetry (%) 96 Oxygen Delivery Method Room Air Allergies/Home Meds Allergies & Medications Allergies No Known Allergies Allergy (Verified 02/08/25 10:25) Medication Reconciliation vitamin-ferrous fumarate 28 mg iron-folic acid 800 mcg tablet ( Vitamins with Minerals) 1 tab PO QDAY #60 tabs 12/27/24 [Rx Confirmed 02/08/25] Intake Visit Data Collection New Patient or Established: Established Patient (seen at [facility] within 3 years) Reason for Visit:: CARE/ GBS DUE Seen by Clinical Staff ONLY (RN/MA): No Internal Medicine Doctor Required: No Do You Feel Safe at Home: Yes Authorities Contacted: N/A PCP or OBGYN visit in last 3 months: Yes Hx Now: Yes Are you currently on any form of Control: No Pain Present Currently: No Pain Scale Used: Garcia-Alexandre/Numerical Pain scale:: 0 Smoking Status Smoking Status: Never smoker Immunizations Flu Vaccine in the Last 12 Months: Yes Flu Vaccine Exclusion Criteria: Already Received Questionnaires Covid-19 Vaccine Questionnaire Has patient been vacinated for Covid-19 Have you been vacinated for Covid-19: No PHQ-9 PHQ-2 Over the last 2 weeks, how often have you been bothered by any of the following problems? 1. Little interest or pleasure in doing things: not at all 2. Feeling down, depressed, or hopeless: not at all Total score: 0 PHQ-9 3. Trouble falling or staying asleep, or sleeping too much: Not at all 4. Feeling tired or having little energy: Not at all 5. Poor appetite or overeating: Not at all 6. Feeling bad about yourself - or that you are a failure or have let yourself or your family down: Not at all 7. Trouble concentrating on things, such as reading the newspaper or watching television: Not at all 8. Moving or speaking so slowly that other people could have noticed? - Or the opposite - being so fidgety or restless that you have been moving around a lot more than usual: not at all 9. Thoughts that you would be better off or of hurting yourself in some way: Not at all Total score: 0 Source: Developed by Drs. Silas Aranda, Bria Clayton, Luis Jones and colleagues, with an educational logan from [employer]. Depression screen completed yes Social History Living Situation History Lives With: Family Housing: House Tobacco History Smoking Status: Never smoker Second Hand Smoke Exposure: No Alcohol History Alcohol Intake: Never Domestic Abuse History Do You Feel Safe at Home: Yes Care OB Visit Log OB Flowsheet Initial Weight: Not Recorded Date -?-?-?-?-?-?-?-?-?-?-?-?- EGA Weight BP Alb Glu CTX Pres Fundal ht FHR Mov Dilation Station Effacement Hx Notes Visit Note 08/29/24 -?-?-?-?-?-?-?-?-?-?-?-?- 12w 3d 53.751 kg 99/64 absent unknown 12 136 absent OBI today. Denies leaking or bleeding. Denies any nausea and vomiting. Patient lives with her mother so she has help at home. Father the baby is not involved. Last. June 03, 2024. This gives due date 03/11/2025. Patient has poor dates OB panel with NIPT and carrier screen today. Is scheduled patient for ultrasound at [facility] for MFM. Discussed SAB precautions. Increase fluids and rest. Continue vitamins. Return in 4 weeks OB check 10/03/24 -?-?-?-?-?-?-?-?-?-?-?-?- 17w 3d 54.034 kg 95/58 absent unknown 17 135 absent c/o light FM, no sab complaints, doing well AFP today , patient will call [facility] for sono. sab precaution 10/31/24 -?-?-?-?-?-?-?-?-?-?-?-?- 21w 3d 54.658 kg 96/59 absent unknown 20 145 absent + fm, denies ptl complaints, denies LOF,VB,UC f/u on anatomy scan, discuss ptl precaution, hydrate, comfort measure for URI, discuss danger s/s. 3rd tri labnv, rtc 4 week 11/29/24 -?-?-?-?-?-?-?-?-?-?-?-?- 25w 4d 56.245 kg 99/62 absent unknown 24 145 absent Reports good movement. Denies labor complaints. Denies leaking, bleeding, contractions Patient has a fo llow-up ultrasound for growth in 4 to 6 weeks. Continue labor precautions. Third trimester labs ordered. Encourage activity and fluids. Return in 4 weeks OB 12/27/24 -?-?-?-?-?-?-?--?-?-?-?-?- 29w 4d 57.663 kg 96/59 absent unknown 28 145 absent Reports good movement. Denies contractions. Denies leaking. Denies bleeding. Patient needs a refill on vitamins Ultrasound at [facility] for growth. Refill vitamins. Discussed diet and weight. Patient eats every 2 hours. Discussed labor precautions. Tdap today. Increase fluids. Return in 3 weeks OB check 01/11/25 -?-?-?-?-?-?-?-?-?-?-?-?- 31w 5d 59.024 kg 100/59 absent cephalic 30 146 active Reports good movement. Denies leaking, bleeding, cramps no OB complaints Called for ultrasound results. Discussed labor with patient. Parameters. Discussed kick count twice a day. Increase fluids. Continue with small frequent meals. Return in 2 weeks OB check 01/25/25 -?-?-?-?-?-?-?-?-?-?-?-?- 33w 5d 59.534 kg 94/61 absent cephalic 33 145 active Reports good movement. Denies leaking or bleeding. No contractions. No OB complaints Fetus active. Discussed kick counts twice a day. Increase fluids. Continue prenatals. Return in 2 weeks OB check 02/08/25 -?-?-?-?-?-?-?-?-?-?-?-?- 35w 5d 60.328 kg 98/62 absent cephalic 35 145 active Reports good movement. Denies leaking, bleeding, contractions GBS today. Discussed labor precautions. Kick count twice a day. Increase fluids. Continue prenatals. Return in a week OB check DINORAH Calculator Estimated Delivery Date Method Current WG Current Estimate 03/10/25 LMP (Uncertain) 35w 5d Other Estimates 03/10/25 Ultrasound #1 35w 5d 03/06/25 Ultrasound #2 36w 2d 03/10/25 Manual 35w 5d final dinorah: 02/27 05/24. 40% Notes Visit Date: 12/27/24 Last Updated by: Shital North CNM 12/27: 3rd tri labs: wnl Visit Date: 11/29/24 Last Updated by: Shital North CNM 11/23: IUP: 24w5. EDC: 03/10/15. efw 30% Visit Date: 10/31/24 Last Updated by: Shital North CNM 24 yo lmp 06/03/24. EDC: 03/10/25. NIPT/carrier screen-, OB panel: O+,abs-, rpr;;nr, rub imm, hbsag-,hiv-, HC-, GC/CT-, UT-/UA-, Visit Date: 10/03/24 Last Updated by: Shital North CNM O+,abs-, rpr;;nr, rub imm, hbsag-, hiv-, GC/CT-, NIPT-, HC-, Visit Date: 08/29/24 Last Updated by: Shital North CNM 24 yo . LMP 06/03/24. EDC 03/11/25 Office Procedures OBC Clinic LOC & Office Proc's Nursing/Assessment Patient Status: Established Patient OB Clinic Nursing Assessment: Medication Reconciliation, Update PMH in EMR and Vital Signs OB Clinic Coordination of Care: Complex Care and Chronic Disease 1-5, Consent,records obtained, informed consent, Education Simp Pt/Fam, 1 Ins Authorization, Lab and Imaging orders, Results/Orders obtained and Staff clarify orders Special Needs: Heart tones Miscellaneous Interventions: Culture Specimen Collection Established Patient Charge Established Patient Point Assignment: 165 Established Patient Point Charge: EP Level 5 (160-above) Assessment & Plan Diagnosis / Problem List (1) Encounter for supervision of high risk in third trimester, ante : Status: Acute Plan GBS today discussed labor precautions. Kick count twice a day. Increase fluids. Continue prenatals. Return in a week OB check Additional Plan Follow Up: 1 Week (obc)
== END 2025-02-08 10:53 | disposition home or self-care (01) ==
LOC: HODSOBC 10:09
PROVIDERS: Supervising Provider Advanced Practice Midwife; Visit Provider Advanced Practice Midwife
DX: O09.93 Supervision of high risk pregnancy, unspecified, third trimester (principal); Z3A.35 35 weeks gestation of pregnancy; Z36.85 Encounter for antenatal screening for Streptococcus B
CPT/HCPCS: 99215; G0463

== ENCOUNTER 2025-02-21 11:07 | Outpatient (AMB) | payer MEDICAID, SELFPAY ==
[2025-02-21 11:25] VITALS: BP 96/58; PULSE 85; RESP 18; TEMP 36.2; O2SAT 98; BMI 26.4
--- NOTE | 2025-02-21 11:25 | OBCLNT_ITS ---
Vital Signs 02/21/25 11:25 Height 1.52 m Height Method Stated Weight 60.951 kg Weight Measurement Method Standing Scale BMI 26.4 BP 96/58 L Blood Pressure Source Automatic Cuff Blood Pressure Location Left Upper Arm Position Sitting Respiration 18 Pulse 85 Pulse Source Monitor Temp 97.2 F Temp Source Oral Pulse Oximetry (%) 98 Oxygen Delivery Method Room Air Allergies/Home Meds Allergies & Medications Allergies No Known Allergies Allergy (Verified 02/21/25 11:26) Medication Reconciliation vitamin-ferrous fumarate 28 mg iron-folic acid 800 mcg tablet ( Vitamins with Minerals) 1 tab PO QDAY #60 tabs 12/27/24 [Rx Confirmed 02/21/25] Immunizations Immunizations Flu Vaccine in the Last 12 Months: No Flu Vaccine Exclusion Criteria: No Exclusion Criteria Care OB Visit Log OB Flowsheet Initial Weight: Not Recorded Date -?-?-?-?-?-?-?-?-?-?-?-?- EGA Weight BP Alb Glu CTX Pres Fundal ht FHR Mov Dilation Station Effacement Hx Notes Visit Note 08/29/24 -?-?-?-?-?-?-?-?-?-?-?-?- 12w 3d 53.751 kg 99/64 absent unknown 12 136 absent OBI today. Denies leak ing or bleeding. Denies any nausea and vomiting. Patient lives with her mother so she has help at home. Father the baby is not involved. Last. June 03, 2024. This gives due date 03/11/2025. Patient has poor dates OB panel with NIPT and carrier screen today. Is scheduled patient for ultrasound at [facility] for MFM. Discussed SAB precautions. Increase fluids and rest. Continue vitamins. Return in 4 weeks OB check 10/03/24 -?-?-?-?-?-?-?-?-?-?-?-?- 17w 3d 54.034 kg 95/58 absent unknown 17 135 absent c/o light FM, no sab complaints, doing well AFP today , patient will call [facility] for sono. sab precaution 10/31/24 -?-?-?-?-?-?-?-?-?-?-?-?- 21w 3d 54.658 kg 96/59 absent unknown 20 145 absent + fm, denies ptl complaints, denies LOF,VB,UC f/u on anatomy scan, discuss ptl precaution, hydrate, comfort measure for URI, discuss danger s/s. 3rd [facility] lablizbet, rtc 4 week 11/29/24 -?-?-?-?-?-?-?-?-?-?-?-?- 25w 4d 56.245 kg 99/62 absent unknown 24 145 absent Reports good movement. Denies labor complaints. Denies leaking, bleeding, contractions Patient has a fo llow-up ultrasound for growth in 4 to 6 weeks. Continue labor precautions. Third trimester labs ordered. Encourage activity and fluids. Return in 4 weeks OB 12/27/24 -?-?-?-?-?-?-?-?-?-?-?-?- 29w 4d 57.663 kg 96/59 absent unknown 28 145 absent Reports good movement. Denies contractions. Denies leaking. Denies bleeding. Patient needs a refill on vitamins Ultrasound at [facility] for growth. Refill vitamins. Discussed diet and weight. Patient eats every 2 hours. Discussed labor precautions. Tdap today. Increase fluids. Return in 3 weeks OB check 01/11/25 -?--?-?-?-?-?-?-?-?-?-?-?- 31w 5d 59.024 kg 100/59 absent cephalic 30 146 active Reports good movement. Denies leaking, bleeding, cramps no OB complaints Called for ultrasound results. Discussed labor with patient. Parameters. Discussed kick count twice a day. Increase fluids. Continue with small frequent meals. Return in 2 weeks OB check 01/25/25 -?-?-?-?-?-?-?-?-?-?-?-?- 33w 5d 59.534 kg 94/61 absent cephalic 33 145 active Reports good movement. Denies leaking or bleeding. No contractions. No OB complaints Fetus active. Discussed kick counts twice a day. Increase fluids. Continue prenatals. Return in 2 weeks OB check 02/08/25 -?-?-?-?-?-?-?-?-?-?--?-?- 35w 5d 60.328 kg 98/62 absent cephalic 35 145 active Reports good movement. Denies leaking, bleeding, contractions GBS today. Discussed labor precautions. Kick count twice a day. Increase fluids. Continue prenatals. Return in a week OB check 02/21/25 -?-?-?-?-?-?-?-?-?-?-?-?- 37w 4d 60.951 kg 96/58 occasional cephalic 36 145 active Reports good movement. Denies leaking or bleeding. Occasional contraction Discussed negative GBS. Discussed labor precautions. Kick count twice a day. Continue prenatals and return in 1 week OB check DINORAH Calculator Estimated Delivery Date Method Current WG Current Estimate 03/10/25 LMP (Uncertain) 37w 4d Other Estimates 03/10/25 Ultrasound #1 37w 4d 03/06/25 Ultrasound #2 38w 1d 03/10/25 Manual 37w 4d final dinorha: 02/27 05/24. 40% Notes Visit Date: 02/21/25 Last Updated by: Shital North CNM GBS- Visit Date: 12/27/24 Last Updated by: Shital North CNM 12/27: 3rd tri labs: wnl Visit Date: 11/29/24 Last Updated by: Shital North CNM 11/23: IUP: 24w5. EDC: 03/10/15. efw 30% Visit Date: 10/31/24 Last Updated by: Shital North CNM 24 yo lmp 06/03/24. EDC: 03/10/25. NIPT/carrier screen-, OB panel: O+,abs-, rpr;;nr, rub imm, hbsag-,hiv-, HC-, GC/CT-, UT-/UA-, Visit Date: 10/03/24 Last Updated by: Shital North CNM O+,abs-, rpr;;nr, rub imm, hbsag-, hiv-, GC/CT-, NIPT-, HC-, Visit Date: 08/29/24 Last Updated by: Shital North CNM 24 yo . LMP 06/03/24. EDC 03/11/25 Office Procedures OB Clinic LOC & Office Proc's Nursing/Assessment Patient Status: Established Patient OB Clinic Nursing Assessment: Medication Reconciliation, Update PMH in EMR and Vital Signs OB Clinic Coordination of Care: Consent,records obtained, informed consent, Education Simp Pt/Fam, Lab and Imaging orders and Staff clarify orders Special Needs: Heart tones Established Patient Charge Established Patient Point Assignment: 105 Established Patient Point Charge: EP Level 3 (80-115) Assessment & Plan Diagnosis / Problem List (1) Encounter for supervision of high risk in third trimester, antepartum: Status: Acute Plan Discussed labor precautions. Kick count twice a day. Review danger signs symptoms ER precautions. GBS negative. Return in a week OB check Additional Plan Follow Up: 1 Week (obc)
== END 2025-02-21 12:00 | disposition home or self-care (01) ==
LOC: HODSOBC 11:07
PROVIDERS: Supervising Provider Advanced Practice Midwife; Visit Provider Advanced Practice Midwife
DX: O09.93 Supervision of high risk pregnancy, unspecified, third trimester (principal); Z3A.37 37 weeks gestation of pregnancy
CPT/HCPCS: 99213; G0463

== ENCOUNTER 2025-03-07 09:44 | Outpatient (AMB) | payer MEDICAID, SELFPAY ==
[2025-03-07 09:50] VITALS: BP 105/66; PULSE 82; RESP 16; TEMP 36.6; O2SAT 98; BMI 26.2
--- NOTE | 2025-03-07 09:50 | AMB.OBPNC ---
Vital Signs 03/07/25 09:50 Height 1.52 m Height Method Stated Weight 60.498 kg Weight Measurement Method Standing Scale BMI 26.2 BP 105/66 Blood Pressure Source Automatic Cuff Blood Pressure Location Left Upper Arm Position Sitting Respiration 16 Pulse 82 Pulse Source Monitor Temp 97.8 F Temp Source Oral Pulse Oximetry (%) 98 Oxygen Delivery Method Room Air Allergies/Home Meds Allergies & Medications Allergies No Known Allergies Allergy (Verified 03/07/25 10:07) Medication Reconciliation vitamin-ferrous fumarate 28 mg iron-folic acid 800 mcg tablet ( Vitamins with Minerals) 1 tab PO QDAY #60 tabs 12/27/24 [Rx Confirmed 03/07/25] Immunizations Immunizations Flu Vaccine in the Last 12 Months: No Flu Vaccine Exclusion Criteria: Refused by Patient Care OB Visit Log OB Flowsheet Initial Weight: Not Recorded Date <del>?</del> EGA Weight BP Alb Glu CTX Pres Fundal ht FHR Mov Dilation Station Effacement Hx Notes Visit Note 08/29/24 <del>?</del> 12w 3d 53.751 kg 99/64 absent unknown 12 136 absent OBI today. Denies leaking or bleeding. Denies any nausea and vomiting. Patient lives with her mother so she has help at home. Father the baby is not involved. Last. June 03, 2024. This gives due date 03/11/2025. Patient has poor dates OB panel with NIPT and carrier screen today. Is scheduled patient for ultrasound at [facility] for MFM. Discussed SAB precautions. Increase fluids and rest. Continue vitamins. Return in 4 weeks OB check 10/03/24 <del>?</del> 17w 3d 54.034 kg 95/58 absent unknown 17 135 absent c/o light FM, no sab complaints, doing well AFP today, patient will call [facility] for sono. sab precaution 10/31/24 <del>?</del> 21w 3d 54.658 kg 96/59 absent unknown 20 145 absent + fm, denies ptl complaints, denies LOF,VB,UC f/u on anatomy scan, discuss ptl precaution, hydrate, comfort measure for URI, discuss danger s/s. 3rd [facility] labnv, rtc 4 week 11/29/24 <del>?</del> 25w 4d 56.245 kg 99/62 absent unknown 24 145 absent Reports good movement. Denies labor complaints. Denies leaking, bleeding, contractions Patient has a follow-up ultrasound for growth in 4 to 6 weeks. Continue labor precautions. Third trimester labs ordered. Encourage activity and fluids. Return in 4 weeks OB 12/27/24 <del>?</del> 29w 4d 57.663 kg 96/59 absent unknown 28 145 absent Reports good movement. Denies contractions. Denies leaking. Denies bleeding. Patient needs a refill on vitamins Ultrasound at [facility] for growth. Refill vitamins. Discussed diet and weight. Patient eats every 2 hours. Discussed labor precautions. Tdap today. Increase fluids. Return in 3 weeks OB check 01/11/25 <del>?</del> 31w 5d 59.024 kg 100/59 absent cephalic 30 146 active Reports good movement. Denies leaking, bleeding, cramps no OB complaints Called for ultrasound results. Discussed labor with patient. Parameters. Discussed kick count twice a day. Increase fluids. Continue with small frequent meals. Return in 2 weeks OB check 01/25/25 <del>?</del> 33w 5d 59.534 kg 94/61 absent cephalic 33 145 active Reports good movement. Denies leaking or bleeding. No contractions. No OB complaints Fetus active. Discussed kick counts twice a day. Increase fluids. Continue prenatals. Return in 2 weeks OB check 02/08/25 <del>?</del> 35w 5d 60.328 kg 98/62 absent cephalic 35 145 active Reports good movement. Denies leaking, bleeding, contractions GBS today. Discussed labor precautions. Kick count twice a day. Increase fluids. Continue prenatals. Return in a week OB check 02/21/25 <del>?</del> 37w 4d 60.951 kg 96/58 occasional cephalic 36 145 active Reports good movement. Denies leaking or bleeding. Occasional contraction Discussed negative GBS. Discussed labor precautions. Kick count twice a day. Continue prenatals and return in 1 week OB check 03/07/25 <del>?</del> 39w 4d 60.498 kg 105/66 occasional cephalic 38 145 active 2.5 -3 50 Reports good movement. Patient states she thinks she has been leaking since this morning. Occasional contraction. Bleeding with exam, sve: 50/p/-3/vertex Thousand exam today. I sent patient to labor and delivery to rule out ruptured membranes. Discussed labor precautions and kick count. Return in a week if undelivered DINORAH Calculator Estimated Delivery Date Method Current WG Current Estimate 03/10/25 LMP (Uncertain) 39w 4d Other Estimates 03/10/25 Ultrasound #1 39w 4d 03/06/25 Ultrasound #2 40w 1d 03/10/25 Manual 39w 4d final dinorah: 03/10/25. 40% Notes Visit Date: 02/21/25 Last Updated by: Shital North CNM GBS- Visit Date: 12/27/24 Last Updated by: Shital North CNM 12/27: 3rd tri labs: wnl Visit Date: 11/29/24 Last Updated by: Shital North CNM 11/23: IUP: 24w5. EDC: 03/10/15. efw 30% Visit Date: 10/31/24 Last Updated by: Shital North CNM 24 yo lmp 06/03/24. EDC: 03/10/25. NIPT/carrier screen-, OB panel: O+,abs-, rpr;;nr, rub imm, hbsag-,hiv-, HC-, GC/CT-, UT-/UA-, Visit Date: 10/03/24 Last Updated by: Shital North CNM O+,abs-, rpr;;nr, rub imm, hbsag-, hiv-, GC/CT-, NIPT-, HC-, Visit Date: 08/29/24 Last Updated by: Shital North, BECKI 24 yo . LMP 06/03/24. EDC 03/11/25 Office Procedures OBC Clinic LOC & Office Proc's Nursing/Assessment Patient Status: Established Patient OB Clinic Nursing Assessment: Medication Reconciliation, Update PMH in EMR and Vital Signs OB Clinic Coordination of Care: Complex Care and Chronic Disease 1-5, Consent,records obtained, informed consent, Education Simp Pt/Fam, 1 Ins Authorization, Lab and Imaging orders, Results/Orders obtained and Staff clarify orders Special Needs: Heart tones Miscellaneous Interventions: Pelvic no cultures Established Patient Charge Established Patient Point Assignment: 160 Established Patient Point Charge: EP Level 5 (160-above) Assessment & Plan Diagnosis / Problem List (1) Encounter for supervision of high risk in third trimester, antepartum: Status: Acute Plan Discussed labor precautions. Kick counts twice a day. Patient to labor and delivery to rule out ruptured membranes. Discussed danger signs and symptoms and return in a week if undelivered Additional Plan Follow Up: 1 Week (obc)
== END 2025-03-07 10:33 | disposition home or self-care (01) ==
LOC: HODSOBC 09:44
PROVIDERS: Supervising Provider Advanced Practice Midwife; Visit Provider Advanced Practice Midwife
DX: O09.93 Supervision of high risk pregnancy, unspecified, third trimester (principal); Z3A.39 39 weeks gestation of pregnancy; Z28.21 Immunization not carried out because of patient refusal
CPT/HCPCS: 90686; 99215; G0463; J9060

== ENCOUNTER 2025-03-07 10:49 | Observation (INO) | payer MEDICAID, SELFPAY ==
[2025-03-07] VITALS (23 sets, daily range): BP systolic 102–107; BP diastolic 55–63; PULSE 77–100; RESP 14–100; TEMP 36.5; O2SAT 96–98; BMI 26.0
[2025-03-07 11:32] LABS: ROM Kit Exp Date# 041128; ROM Swab Mixed By: AYONJ; Swb Mxed in Solvent 1 min? Yes
[2025-03-07 11:33] LABS: Rupture of Fetal Membranes Negative (Negative)
== END 2025-03-07 14:55 | disposition home or self-care (01) ==
PROVIDERS: Admitting Provider Advanced Practice Midwife; Visit Provider Advanced Practice Midwife
DX: Z34.83 Encounter for supervision of other normal pregnancy, third trimester (principal); Z3A.39 39 weeks gestation of pregnancy
CPT/HCPCS: 59025; 59899; 84112; A9270

== ENCOUNTER 2025-03-08 04:17 | Inpatient (IN) | payer MEDICAID, SELFPAY ==
[2025-03-08] VITALS (16 sets, daily range): BP systolic 90–118; BP diastolic 53–65; PULSE 72–117; RESP 15–98; TEMP 36.7–36.9; O2SAT 96–98; BMI 26.2
[2025-03-08] MEDS: RINGERS LACTATED 1000 ML 1,000 ML 100 ML IV (04:35)
[2025-03-08] MEDS: OXYTOCIN in NS 20 units 20 UNIT/1,000 ML BAG 125 UNIT IV (05:00)
[2025-03-08] MEDS: OXYTOCIN INJ 10 UNIT/ML VIAL IM (05:00)
[2025-03-08] MEDS: BENZO/LANO/ALOE (Dermoplast) 60 GM CAN 1 SPRAY TOP (05:07)
[2025-03-08 05:22] LABS: Basophils # (Auto) 0.0 Thou/mm3 (0.0-0.2); Basophils % (Auto) 0 % (0-2.5); Eosinophils # (Auto) 0.0 Thou/mm3 (0.0-0.5); Eosinophils % (Auto) 0 % (0-10); Hematocrit 38.6 % (36.0-46.0); Hemoglobin 13.0 g/dL (12.0-16.0); Immature Granulocytes Auto 0.07 Thou/mm3 (0.00-0.00); Lymphocytes # (Auto) 2.1 Thou/mm3 (1.0-4.8); Lymphocytes % (Auto) 15 % (10-50); Mean Corpuscular HGB Conc 33.7 g/dl (31.0-37.0); Mean Corpuscular Hemoglobin 29.0 pg (25.0-35.0); Mean Corpuscular Volume 86 fL (80-100); Monocytes # (Auto) 1.1 Thou/mm3 (0.0-0.8); Monocytes % (Auto) 8 % (0-12); Neutrophils # (Auto) 10.7 Thou/mm3 (1.8-7.7); Neutrophils % (Auto) 77 % (37-80); Nucleated Red Blood Cell # 0.00 Thou/mm3 (0.00-0.00); Nucleated Red Blood Cell % 0 /100 WBC (0); Platelet Count 179 Thou/mm3 (140-440); RDW Standard Deviation 44.9 fL (36.4-46.3); Red Blood Count 4.49 Miln/mm3 (4.00-5.20); White Blood Count 13.9 Thou/mm3 (3.6-11.0)
--- NOTE | 2025-03-08 05:34 | ESHP_ITS ---
Documentation for date of: 03/08/25 OB Labor/Induct. HPI History of Present Illness Chief complaint: labor : 4 Para: 3 Term pregnancies: 3 pregnancies: 0 Living children: 3 History of Abortions: Spontaneous and Elective: 0 History of Vaginal deliveries: 3 History of sections: No History of : No Date of last menstrual period: 06/03/24 DINORAH: 03/10/25 Gestational Age (weeks): 39 Gestational Age (days): 5 Gestational age based on last menstrual period: 39 History of present illness: 24-year-old 4 para 3 admitted to labor and delivery with complaints of contractions since 1 in the morning. Denies leaking fluid. Reports good movement. Increased mucus and bloody show. Patient is been followed at [facility] OB clinic. Her first visit was at 12 weeks. Last. June 03, 2024. This gave due date March 10, 2025. Patient's first ultrasound was in October she was 24 weeks 5. Showed normal anatomy and confirm dates. She also had a third trimester ultrasound that confirmed the same. Denies social habits. Denies surgery. Denies chronic illness. She has had no problems with the . Patient is a positive, antibody screen negative, RPR nonreactive,, hepatitis B negative, hep C negative, HIV negative, GC and Chlamydia were negative. She had normal 1 hour. Her A1c was 4.7. NIPT and carrier screens all negative. And GBS was negative History of Present Dating criteria: LMP confirmed by 1st trimester US Adequate Care: Yes Ultrasounds: normal 1st trimester US and normal mid trimester US Obstetrical complications: none Medical complications: none Labs Labs: Positive: Rubella Titre, Negative: RPR, Hepatitis B, HIV, Chlamydia, Gonorrhea and Group Beta Strep and Unknown: Herpes Type 1 and Herpes Type 2 Review of Systems Review of Systems Systems Reviewed: All systems reviewed, normal except as documented Past Medical History Surgical History SURGICAL: Negative Section Meds Home Medications and Allergies Allergies Allergy/AdvReac Type Severity Reaction Status Date / Time No Known Allergies Allergy Verified 03/08/25 04:42 OB Exam Physical Exam Vital signs: Temp Pulse Resp BP 98.1 F 95 17 93/58 L 03/08/25 04:27 03/08/25 05:26 03/08/25 04:27 03/08/25 05:26 Narrative: Alert and oriented. Normal heart rate and rhythm. Lungs clear no wheezes. Gravid abdomen. Gynecoid pelvis. Estimated weight 7 pounds. Vaginal exam on admission was 90%, 9 cm. -2 station. Bag water intact. Vertex presentation. heart rate category 1 with accelerations and moderate variability and regular contractions Routine Cardiovascular Exam Cardiovascular: Present RRR Routine Abdominal Exam Abdominal: Present soft Detailed Labor and Delivery Exam Dilation (cm): 9 Effacement (%): 90 Cervix position: mid station: -2 Consistency: soft Presentation: Vertex Cervical ripeness score: 8 Membranes: intact Baseline heart rate: 135 monitor accelerations: 15x15 monitor decelerations: None MCC variability: Moderate (11-25) Contraction frequency (min): 3-4 Contraction duration (sec): 40 Tachysystole: No Contraction intensity: Moderate OB Results Labs 03/08/25 04:42 Labs: Short CBC 03/08/25 Range/Units 04:42 WBC 13.9 H (3.6-11.0) Thou/mm3 Hgb 13.0 (12.0-16.0) g/dL Hct 38.6 (36.0-46.0) % Plt Count 179 (140-440) Thou/mm3 OB Assessment & Plan Assessment and Plan (1) Normal labor and delivery: Status: Acute Additional Plan Induction method: none Plan: anticipate NVD and consult MD louis
--- NOTE | 2025-03-08 05:38 | OBDSUM_ITS ---
Data ([facility]anks) Data Hx Section: No : 4 Term: 3 : 0 Livin Abortions: Spontaneous & Theraputic: 0 Delivery Data (Franks) Labor Data Initiation of labor: Spontaneous ROM date: 03/08/25 ROM time: 04:50 Amniotic membrane rupture type: Artificial Amniotic fluid description: Clear Delivery Data EDC: 03/10/25 EDC calculated by:: LMP/early US confirmation Date of arrival to unit: 03/08/25 Time of arrival to unit: 04:17 Onset of labor date: 03/08/25 Onset of labor time: 01:00 Complete dilation date: 03/08/25 Complete dilation time: 04:50 delivery date: 03/08/25 [place] delivery time: 04:54 Gestational age (weeks): 39 Gestational age (days): 5 Placenta delivery date: 03/08/25 Placenta delivery time: 05:00 Stage 1 total time: Labor - Stage 1 Duration 3 hours and 50 minutes Delivered by: Shital North Delivery nurse: manuela Hinojosa nurse: humble egan rn Wet Process Miller at delivery: No Support person(s) at delivery: patient's mother Delivery Method Delivery method: Normal Vaginal Delivery Presentation: Vertex position: OA Anesthesia Type Anesthesia Type: None Delivery Room Medications Delivery room medications: Pitocin 10 u IM, Pitocin 20 u IV, Cytotec 800 GA and other (txa x2) Placenta Placenta delivery description: Spontaneous (inspected, intact) cord blood collection: Cord Blood Type Episiotomy Episiotomy description: None (intact,no laceration) EBL Estimated blood loss (ml): 400 Umbilical Cord cord description: 3 Vessels [place] Data (Franks) [place] Data order: 1 's gender: Male Identification band number: [id number] weight (gms): 3270 g Weight (pounds): 7 lbs and 3.3 ozs length: 50.8 cm 1 minute: 9 5 minutes: 9
[2025-03-08] MEDS: TRANEXAMIC ACID 1,000 MG IVPB 1,000 MG/100 ML BAG 200 MG IV (05:42)
[2025-03-08 06:02] LABS: Syphilis Nonreactive (Nonreactive)
[2025-03-08] MEDS: IBUPROFEN TAB 400 MG TABLET 800 MG PO (06:43)
[2025-03-08] MEDS: DOCUSATE SOD 100 MG CAPSULE PO ×2 (07:54→20:56)
[2025-03-08 13:56] LABS: Basophils # (Auto) 0.0 Thou/mm3 (0.0-0.2); Basophils % (Auto) 0 % (0-2.5); Eosinophils # (Auto) 0.0 Thou/mm3 (0.0-0.5); Eosinophils % (Auto) 0 % (0-10); Hematocrit 34.5 % (36.0-46.0); Hemoglobin 11.5 g/dL (12.0-16.0); Immature Granulocytes Auto 0.06 Thou/mm3 (0.00-0.00); Lymphocytes # (Auto) 3.0 Thou/mm3 (1.0-4.8); Lymphocytes % (Auto) 18 % (10-50); Mean Corpuscular HGB Conc 33.3 g/dl (31.0-37.0); Mean Corpuscular Hemoglobin 28.4 pg (25.0-35.0); Mean Corpuscular Volume 85 fL (80-100); Monocytes # (Auto) 1.6 Thou/mm3 (0.0-0.8); Monocytes % (Auto) 9 % (0-12); Neutrophils # (Auto) 12.5 Thou/mm3 (1.8-7.7); Neutrophils % (Auto) 73 % (37-80); Nucleated Red Blood Cell # 0.00 Thou/mm3 (0.00-0.00); Nucleated Red Blood Cell % 0 /100 WBC (0); Platelet Count 168 Thou/mm3 (140-440); RDW Standard Deviation 43.8 fL (36.4-46.3); Red Blood Count 4.05 Miln/mm3 (4.00-5.20); White Blood Count 17.2 Thou/mm3 (3.6-11.0)
[2025-03-09 07:15] VITALS: BP 102/68; PULSE 68; RESP 18; TEMP 36.7; O2SAT 98
--- NOTE | 2025-03-09 07:51 | PD.LDPPPRG ---
Subjective Subjective Interval history: No complaints of pain. No dizziness. Bonding breast-feeding Exam Vital Signs Temp Pulse Resp BP Pulse Ox O2 Del Method 98.3 F 72 16 90/61 96 Room Air 03/08/25 23:37 03/08/25 23:37 03/08/25 23:37 03/08/25 23:37 03/08/25 23:37 03/08/25 23:37 Narrative Exam Vital signs stable afebrile. BS are soft. Fundus firm below umbilicus. Perineum intact no swelling. Small lochia. Uterus well involuted. 2+ DTRs and negative Curtis Objective Labs 03/08/25 13:25 Labs: Laboratory Results - last 24 hr 03/08/25 13:25 WBC 17.2 H RBC 4.05 Hgb 11.5 L Hct 34.5 L MCV 85 MCH 28.4 MCHC 33.3 RDW Std Deviation 43.8 Plt Count 168 Neut % (Auto) 73 Lymph % (Auto) 18 [place] % (Auto) 9 Eos % (Auto) 0 Baso % (Auto) 0 Neut # (Auto) 12.5 H Lymph # (Auto) 3.0 [place] # (Auto) 1.6 H Eos # (Auto) 0.0 Baso # (Auto) 0.0 Immature Gran # (Auto) 0.06 H Absolute Nucleated RBC 0.00 Immature Gran % 0 Nucleated RBC % 0 Assessment & Plan Problem List (1) Normal labor and delivery: Status: Acute Assessment Comment Assessment comment: 24 hr pp Plan Comment Plan Comment: Discharge home with baby. Continue vitamins and iron. Tylenol ibuprofen for pain. Discussed danger signs symptoms and ER precautions increase rest and discussed signs and symptoms of infection and return in 4 weeks visit Time Spent With Patient Time: Total time spent is greater than 50% in coordination of care (as documented) at patient's floor/unit and/or counseling patient:
--- NOTE | 2025-03-09 07:54 | PD.LDDS ---
DS: Providers Provider Date of admission: 03/08/25 04:34 Primary care physician: Physician No Primary/Family Admitting Provider: Emeli Tamayo MD ([facility]) Attending Provider on Admission: Shital North CNM Consults: 03/08/25 05:46 Referral Routine Comment: Attending Provider on DC: Shital North CNM Discharging Provider: Shital North CNM DS: Diagnosis Problem List Completed Was Problem List Reviewed/Reconciled?: Yes Summary/Hosp Course Brief History: 24-year-old 4 para 3 admitted to labor and delivery with complaints of contractions since 1 in the morning. Denies leaking fluid. Reports good movement. Increased mucus and bloody show. Patient is been followed at [facility]. Her first visit was at 12 weeks. Last. June 03, 2024. This gave due date March 10, 2025. Patient's first ultrasound was in October she was 24 weeks 5. Showed normal anatomy and confirm dates. She also had a third trimester ultrasound that confirmed the same. Denies social habits. Denies surgery. Denies chronic illness. She has had no problems with the . Patient is a positive, antibody screen negative, RPR nonreactive,, hepatitis B negative, hep C negative, HIV negative, GC and Chlamydia were negative. She had normal 1 hour. Her A1c was 4.7. NIPT and carrier screens all negative. And GBS was negative Peripartum Data Delivery Method: Normal Vaginal Delivery Episiotomy Description: None (intact,no laceration) Laceration Description: no complications: none Time Spent with Patient Time attestation: Total time spent providing and/or coordinating discharge services: Exam Vital Signs Temp Pulse Resp BP Pulse Ox O2 Del Method 98.3 F 72 16 90/61 96 Room Air 03/08/25 23:37 03/08/25 23:37 03/08/25 23:37 03/08/25 23:37 03/08/25 23:37 03/08/25 23:37 Discharge Plan Plan Patient Disposition: HOME (Self Care) Patient condition on transfer: Stable Prescriptions/Referrals Prescriptions/Med Rec: No Action vit-iron fum-folic ac [ Vitamin with Minerals] 28 mg iron- 800 mcg tablet 1 tab PO QDAY Qty: 60 2RF Referrals: No Primary/Family,Physician [Primary Care Provider] Patient/Caregiver Discharge Instructions Meds to Beds: No Discharge Activity: resume usual activities Print Language: Polish Activity Restrictions/Additional Instructions: Discharge home with baby. Continue vitamins and iron. Tylenol ibuprofen for pain. Discussed danger signs symptoms and ER precautions. And signs symptoms of infection. And return in 4 weeks check Stand Alone Forms: [facility] Award Info., Patient Portal Info Letter Discharge Order Discharge Orders: Discharge (Routine); Ordered 03/09/25 Ordered By: Shital North Planned Discharge Date 03/09/25
[2025-03-09] MEDS: DOCUSATE SOD 100 MG CAPSULE PO (08:08)
== END 2025-03-09 11:22 | disposition home or self-care (01) | DRG 560 ==
LOC: S4SX 06:45 → S4NX 07:13
PROVIDERS: Admitting Provider Obstetrics & Gynecology; Referring Provider Obstetrics & Gynecology; Visit Provider Advanced Practice Midwife
DX: O80 Encounter for full-term uncomplicated delivery (principal); Z37.0 Single live birth; Z3A.39 39 weeks gestation of pregnancy
CPT/HCPCS: 36415; 59025; 85025; 86780; 86850; 86900; 86901; J2590; J3490; J7120; S0191; A9270